=== PATIENT | male | born 1945 | race Caucasian/White ===

== ENCOUNTER 2025-08-05 15:35 | Outpatient (REF) | payer MEDICARE, OTHER, SELFPAY ==
[2025-08-05 18:01] LABS: Folate 6.1 ng/mL (> or = 4.0); Vitamin B12 262 pg/mL (200-900)
== END 2025-08-05 15:36 | disposition home or self-care (01) ==
LOC: HO.LAB 15:35
PROVIDERS: PCP Internal Medicine; Visit Provider Registered Nurse
DX: G31.84 Mild cognitive impairment of uncertain or unknown etiology (principal)
CPT/HCPCS: 36415; 82607; 82746; 84443; 99212

== ENCOUNTER 2025-08-05 15:35 | Outpatient (AMB) | payer MEDICARE, OTHER, SELFPAY ==
--- NOTE | 2025-08-05 15:39 | A.OFFVIS_ITS ---
Intake Visit Reasons: needs cognitive testing Allergies amoxicillin Allergy (Unknown, Verified 08/05/25 15:51) Unknown Medication List - Last Reconciled 08/05/25 by Christine Kaye CNP amlodipine mg PO sertraline 25 mg PO DAILY tamsulosin 0.4 mg PO DAILY valsartan 160 mg PO DAILY HPI Comments Details: 79-year-old man with a history of hypertension who initially presented in summer 2024 with short-term memory concerns. He decided against further work up at that time with CSF dementia panel, and preferred to follow up in 6 months for cognitive testing. He was here today for cognitive testing with MMSE and MoCA. He had 2 master's degrees. 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 He says his memory has never been great and he has always struggled with sequences. He would sometimes lose train of thought. He was going to [place] for few weeks at the end of 08/2025. He first noted some trouble with memory during a trip to [place] in 2022. He has always had problem with names, but recognizes faces. 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 [facility] Medical History (Updated 08/05/25 @ 15:49 by Christine Kaye CNP) Hypertension MCI (mild cognitive impairment) Review of Systems Const Denies chills, Denies daytime sleepiness, Reports difficulty sleeping, Denies fatigue, Denies fever(s), Denies frequent falls, Denies headache(s), Denies increased appetite, Denies poor appetite, Denies snoring, Denies weakness, Denies weight gain and Denies weight loss Eyes Denies loss of vision ENT Denies vertigo, Reports dizziness, Denies headache(s) and Denies neck pain Card Denies chest pain at rest, Denies chest pain with activity, Denies syncope, Denies leg edema, Denies palpitations, Denies dyspnea and Denies dyspnea on exertion Resp Denies cough, Denies dyspnea, Denies dyspnea on exertion and Denies snoring GI Denies abdominal pain, Denies constipation, Denies heartburn, Denies diarrhea and Denies nausea Denies urinary frequency, Denies urinary incontinence and Denies urinary urgency Musc Denies abnormal gait, Denies back pain, Denies myalgias, Denies arthralgias, Denies neck pain, Denies numbness and Denies tingling Neuro Denies abnormal gait, Denies vertigo, Reports dizziness, Denies syncope, Denies frequent falls, Denies headache(s), Denies lack of coordination, Denies loss of vision, Reports memory loss, Denies numbness, Denies Other visual disturbances, Denies restless legs, Denies seizure-like activity, Denies tingling, Denies paresthesias, Denies tremor(s) and Denies weakness Psych Denies anxiety, Denies depression, Denies auditory hallucinations, Reports memory loss and Denies visual hallucinations Endo Denies fatigue and Denies palpitations Physical Exam Neuro Other: Abnormal Neurological Findings:?MMSE 30/30, MoCA 24/30 with MIS 08/02. Mental Status: alert. Cranial Nerves: Pupils are equal, round, and reactive to light. External ocular muscles are intact. Visual jacobson are full, no ptosis. Face is symmetrical, no facial weakness or droop. Facial sensations are normal. Tongue protrudes in midline. Palate elevates symmetrically. Shoulder shrugging is normal. Coordination: No ataxia. No titubation. Mgoluh-ze-rysh, cogq-[id number] test, and rapid alternating movements were normal. Gait Exam: Within normal limits. Extrapyramidal System: Mild hand tremors. No rigidity with normal facial expressions. No bradykinesia. No bradyphrenia. Normal arm swing and posture. No propulsion or retropulsion. Speech: Normal. Assessment & Plan Assessment & Plan (1) MCI (mild cognitive impairment): Code(s): G31.84 - Mild cognitive impairment of uncertain or unknown etiology Category: Medical Plan: He was going to [place] for few weeks next month. Discussed starting medication (such as donepezil), prefers to hold off on starting new medications before leaving. Will discuss newer treatment with anti-amyloid therapy further and additional testing needed if interested at follow up upon return. Labs and EEG ordered. Follow up after testing. Orders: Orders Vitamin B12 and Folate Today G384 - Mild cognitive impairment of uncertain or unknown etiology TSH reflex Free T4 Today G3 - Mild cognitive impairment of uncertain or unknown etiology EEG Routine Today G3 - Mild cognitive impairment of uncertain or unknown etiology Coding Level of Care Code Est Pt Level 4 (84008) Diagnoses MCI (mild cognitive impairment) G3
--- OUTSIDE RECORDS SUMMARY | 2025-08-05 19:26 | XMS_ITS | Clinical Summary ---
Author Organization [facility] [address] [place] [address] [address] [place] [address] Phone Care Team Providers Care Sewer Repairer Name Role Phone Maureen Pelayo MD Primary Care Provider [phone] Allergies Active Allergy Reactions Criticality Noted Date Comments Amoxicillin 01/28/2018 Other Reaction(s): Numbness, tingling or swelling of the lips, tongue or mouth Lisinopril Cough 11/06/2021 Medications fluticasone propionate (FLONASE) 50 mcg/actuation nasal spray Administer 2 sprays into affected nostril(s) 1 (one) time each day. 01/09/20 22 Active tadalafiL (CIALIS) 10 mg tablet TAKE 1 TABLET BY MOUTH EVERY DAY FOR ERECTILE DYSFUNCTION 09/25/19 24 Active azithromycin (ZITHROMAX) 250 mg tablet Take 2 tablets by mouth day 1, then 1 tablet by mouth daily thereafter until completion of prescription. Active doxycycline (ADOXA) 100 mg tablet 03/03/20 24 Active ofloxacin (FLOXIN) 0.3 % otic solution 02/28/20 24 Active predniSONE (DELTASONE) 20 mg tablet 03/30/20 24 Active Shingrix, PF, 50 mcg/0.5 mL suspension for reconstitution 07/31/20 23 Active polyethylene glycol (Golytely) 236-22.74-6.74 -5.86 gram solution Take 4L by mouth once for one dose. May substitue any PEG. Starting at 2PM the day before your procedure drink 1 8oz glasses at your own pace until you complete half of the gallon. Finish 2nd half of the gallon at 8PM. 4000 mL 04/30/20 Active Additional Information Patient not taking.Reported on 07/06/2025 bisacodyL (DULCOLAX) 5 mg EC tablet Take 2 tablets by mouth right before beginning bowel prep. See instructions provided by the office 2 tablet 04/30/20 Active Additional Information Patient not taking.Reported on 07/06/2025 amLODIPine (NORVASC) 5 mg tablet Take 1.5 tablets (7.5 mg total) by mouth 1 (one) time each day. 45 each 5 07/06/20 026 Active sertraline (ZOLOFT) 25 mg tablet Take 1 tablet (25 mg total) by mouth 1 (one) time each day. 30 each 5 07/06/20 026 Active tamsulosin (FLOMAX) 0.4 mg 24 hr capsule Take 1 capsule (0.4 mg total) by mouth 1 (one) time each day. Capsules should be taken 30 minutes following the same meal each day. 90 capsule 1 07/06/20 Active valsartan (DIOVAN) 160 mg tablet Take 1 tablet (160 mg total) by mouth 1 (one) time each day. 90 tablet 1 07/06/20 Active Active Problems Problem Noted Date Diagnosed Date Benign paroxysmal positional vertigo 04/26/2025 Bilateral hearing loss 04/26/2025 Open angle with borderline findings, low risk, b ilateral 04/26/2025 Other disorders of optic ner ve, not elsewhere classified, bilateral 04/26/2025 Other rosacea 04/26/2025 Presence of intraocular lens 04/26/2025 Sensorineural hearing loss, bilateral 04/26/2025 Tear film insufficiency 04/26/2025 Anxiety 08/06/2024 Basal cell carcinoma (BCC) of lower extremity Erythema ab igne 11/19/2023 Neoplastic disease 11/19/2023 Amnesia 10/31/2023 Overview (05/19/2024): Please see note October 31, 2023 Stage 3 chronic kidney disease 07/30/2023 Scar conditions and fibrosis of skin 05/31/2022 Squamous cell carcinoma of skin of trunk 022 Disorder of pigmentation 04/19/2022 Finding of above normal blood pressure 2 Hemangioma of skin and subcutaneous tissue 04/19 Hearing loss 08/25/2021 Cutis rhomboidalis nuchae 08/24/2021 Neoplasm of uncertain behavior of skin 2 Melanocytic nevus of trunk 08/24/2021 Actinic keratosis 08/24/2021 Ventral hernia without obstruction or gangrene 1 Essential hypertension 11/19/2019 Aortic dilatation 06/03/2019 Overview (05/19/2024): Follows with cardiology Kidney stone 02/05/2011 Overview (05/19/2024): S/p lithotripsyX2 follows with urology Hypertrophy of prostate without urinary obstruct ion 03/05/2007 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 Encounters Date Type Department Care Team Description 07/06/2025 9:30 AM EST Office Visit Adult Medicine [address] [address] Maureen Pelayo MD Diarrhea, unspecified type (Primary Dx); Anxiety; Stage 3 chronic kidney disease, unspecified whether stage 3a or 3b CKD (CMS/HCC V24, CMS/HCC V28); Screening for malignant neoplasm of prostate; Benign prostatic hyperplasia with lower urinary tract symptoms, symptom details unspecified 05/06/2025 1:51 PM EDT Anesthesia Event [facility] Endoscopy [address] [place] [id number] Willi Dos Santos MD Sobo, Kathleen, CRNA 05/06/2025 1:31 PM EDT - 05/06/2025 11:59 PM EDT Hospital Encounter [facility] Endoscopy [address] [place] [id number] Marcello Martinez MD Sobo, Kathleen, CRNA Gomes, Sheldon B, MD Diarrhea, unspecified type; Intestinal methanogen overgrowth, unspecified Discharge Disposition: Home or Self Care 05/06/2025 Telephone Gastroenterology - [address] [place] [address] Xochitl Cosme [place] from Last 3 Months Immunizations Immunization Administration Dates Next Due H1N1 Inj Preservative Free 08/23/2009 Influenza Quadravalent, 0.5m l (Fluad) 65yo and older 05/17/2021 Influenza Quadravalent, 0.5m l (Fluzone High-dose) 65yo and older 06/11/2022 Influenza Quadravalent, MDCK , 0.5ml, with preservative (Flucelvax) 6mo and older 06/25/2017 Influenza trivalent, 0.5mL ( Fluzone High-dose) 65yo and older 06/21/2025,06/06/2023,06/21/2020,05/25 Influenza trivalent, with pr eservative (Fluzone; Afluria) 6mo and older 06/20/2018,07/16/2016,05/19/2015,06/09,07/13/2013,07/07/2012,05/23/2011 ,05/24/2010,07/24/2009,06/11/2008,02/2007 Influenza, Unspecified 05/17/2021 Moderna SARS-CoV-2 COVID-19, mRNA, LNP-S, preservative free 06/29/2021,11/03/2020,10/06/2020 Pneumococcal conjugate 13 va lent (Prevnar 13, PCV13) 2mo and older 06/25/2017 Pneumococcal polysaccharide 23 valent (Pneumovax 23) 2yo and older 03/04/2012 Tdap Tetanus diptheria acell ular pertussis (Boostrix; Adacel) 7yo and older 06/03/2019,03/05/2007 Zoster Live 01/06/2013 Zoster recombinant (Shingrix ) 19yo and older 07/31/2023 Surgical History Surgery Date Site/Laterality Comments COLONOSCOPY 03/10/15 PROCEDURE: HISTORICAL COLONOSCOPY; COMMENT: Polyps x 2, otherwise normal Medical History Medical History Date Comments 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 DX:I mpotence of organic origin Hypertrophy of prostate with out urinary obstruction and other lower urinary tract symptoms (LUTS) 03/05/2007 DX:Hypertrophy of prosta te without urinary obstruction and other lower urinary tract symptoms (LUTS) Kidney stone 02/05/2011 DX:Kidney stone Family history of aneurysm 12/02/2018 DX:Zackery boo history of aneurysm Aortic dilatation (CMS/HCC V24) 06/03/2019 DX:Aortic dilatation (HCC); COMMENT: Follows with cardiology Hard to intubate ? Chronic diarrhea Hypertension Family History Medical History Relation Name Comments Colon cancer Aunt at age 56 Other: aortic aneurythm, thorasic Father at age 72 Heart attack Maternal Grandmother Thalia Hollis at a ge 76 Hypertension Mother Meenakshi Relation Name Status Comments Aunt Father Maternal Grandmother Thalia Hollis Mother Meenakshi Social History Tobacco Use Types Packs/Day Years Used Date Smoking Tobacco: Never Smokeless Tobacco: Never Tobacco Cessation:Counseling Given: Not Answered Alcohol Use Standard Drinks/Week Comments Yes 4 (1 standard drink = 0.6 oz pur e alcohol) occasional Housing Instability Answer Date Recorde d Are you worried that in the next 2 months you may not have stable housing? No 11/12/2024 Food Access & Nutrition Answer Date Rec orded Do you have access to a vari ety of food including fruits and vegetables? Yes 11/12/2024 Access to Healthcare Answer Date Record ed Within the last 3 months, ho w many times did you visit the emergency department for your medical care? 2 11/12/2024 Health Literacy Answer Date Recorded How often do you need to hav e someone help you when you read instructions, pamphlets, or other written material from your doctor or pharmacy? Rarely 11/12/2024 Caregiver: How often do you need to have someone help you when you read instructions, pamphlets, or other written material from your doctor or pharmacy? Not on file 11/12/2024 Financial Risk Answer Date Recorded How hard is it for you to pa y for the very basics like food, housing, medical care, and air conditioning / heating? Not very hard 11/12/2024 Transportation Answer Date Recorded Has the lack of transportati on kept you from meetings, work, or from getting things needed for daily living? No Has the lack of transportati on kept you from medical appointments or from getting medications? No 11/12/2024 Social Isolation Answer Date Recorded How often do you feel lonely or isolated from th ose around you? Rarely 11/12/2024 Food Risk Answer Date Recorded Within the past 12 months we worried whether our food would run out before we got money to buy more. Never true 11/12/2024 Within the past 12 months th e food we bought just didn't last and we didn't have money to get more. Never true 11/12/2024 Dependent Care Answer Date Recorded Do you need help finding or paying for care for your loved ones. For example, early childhood specialist or elderly care for an older adult? No 11/12/2024 Education Answer Date Recorded Do you think completing more education or training, like finishing a GED, going to college, or learning a trade, would be helpful for you? No 11/12/2024 Employment and Income Answer Date Recor ded During the last four weeks, have you been actively looking for work? No 11/12/2024 Living Situation Answer Date Recorded What is your living situation? Unrecognized valu e 11/12/2024 Sex and Gender Information Value Date Recorded Sex Assigned at Male 05/06/2025 1:29 PM EDT Legal Sex Male 9:06 PM EST Gender Identity Male 05/06/2025 1:29 PM EDT Sexual Orientation Straight 05/06/2025 1: 29 PM EDT Last Filed Vital Signs Vital Sign Reading Time Taken Comments Blood Pressure 117/56 07/06/2025 9:28 AM EST Pulse 74 07/06/2025 9:28 AM EST Temperature 36.7 C (98.1 F) 07/06/2025 9:28 AM EST Respiratory Rate 16 07/06/2025 9:28 AM EST Oxygen Saturation 98% 05/06/2025 2:26 PM EDT Inhaled Oxygen Concentration - - Weight 92.1 kg (203 lb) 07/06/2025 9:28 AM EST Height 180.3 cm (5' 11 ) 04/29/2025 9:30 AM EDT Body Mass Index 28.31 04/29/2025 9:30 AM EDT Plan of Treatment Upcoming Encounters Date Type Department Care Team (Late st Contact Info) Description 12/06/2025 2:45 PM EDT Office Visit Adult Medicine [address] [phone] Maureen Pelayo MD [address] [place] [address] Health Maintenance Due Date Last Done Comments RSV Immunization Adult Patients (1 - 1-dose 75+ series) 2021 Medicare Annual Wellness Visit 07/21/2022 COVID-19 Vaccine (2024- season) 2025 06/26/2022, 12/06/2021, 06/29/2021, Additional history exists Social Influencers of Health Screening 11/12/2025 11/12/2024 Hypertension/CHF/CAD Annual BMP Blood Test 03/29/2026 03/29/2025, 11/19/2024, 07/28/2024 Falls Risk Assessment 05/06/2026 05/06/2025, 023 Cholesterol Screening (Lipid Panel) 07/17/2028 07/17/2023 DTaP,Tdap,and Td Vaccines (4 - Td or Tdap) 06/03/2029 06/03/2019, 08/19/2012, 03/05/2007 Colorectal Cancer Screening: Colonoscopy 05/06/2035 05/06/2025, 04/25/2020 Hepatitis C Screening Completed 07/13/2013 Pneumococcal Vaccine: 50+ Years Completed 06/25/2017, 03/04/2012 Zoster Vaccines Completed 07/31/2023, 05/21, 08/19/2014, Additional history exists Influenza Vaccine Completed 06/21/2025, , 06/06/2023, Additional history exists Depression Screening Completed 07/06/2025, 01/23/20 24 HIB Vaccines Aged Out No longer eligi ble based on patient's age to complete this topic HPV Vaccines Aged Out No longer eligi ble based on patient's age to complete this topic Hepatitis A Vaccines Aged Out No long er eligible based on patient's age to complete this topic Hepatitis B Vaccines Aged Out No long er eligible based on patient's age to complete this topic IPV Vaccines Aged Out No longer eligi ble based on patient's age to complete this topic MMR Vaccines Aged Out No longer eligi ble based on patient's age to complete this topic Meningococcal ACWY Vaccine Aged Out N o longer eligible based on patient's age to complete this topic Meningococcal B Vaccine Aged Out No l onger eligible based on patient's age to complete this topic RSV Immunization Patients Under 20 months Aged Out No longer eligible based on patient's age to complete this topic Varicella Vaccines Aged Out No longer eligible based on patient's age to complete this topic Procedures Procedure Name Priority Date/Time Associated Diagnosis Comments COLONOSCOPY Routine 05/06/2025 2:05 PM EDT Diarrhea, unspecified type Intestinal methanogen overgrowth, unspecified TISSUE EXAM Routine 05/06/2025 2:00 PM EDT Diarrhea, unspecified type Intestinal methanogen overgrowth, unspecified BASIC METABOLIC PANEL Routine 03/29/2025 2:12 PM EDT Stage 3 chronic kidney disease, unspecified whether stage 3a or 3b CKD (CMS/HCC V24, CMS/[facility] V28) Diarrhea, unspecified type DEPRESSION SCREENING Routine 01/23/2024 LIPID PANEL Routine 07/17/2023 FALLS RISK ASSESSMENT Routine 01/21/2023 HEPATITIS C SCREENING Routine 07/13/2013 from Last 3 Months or Most Recently Relevant to Health Maintenance Results * [place] [facility] [place] [facility] (05/06/2025 2:05 PM EDT) Anatomical Region Laterality Modality Other 05/06/2025 1:41 PM EDT Impressions 05/06/2025 2:06 PM EDT - The examined portion of the ileum was normal. - Normal mucosa in the entire examined colon. Biopsied. - Non-bleeding internal hemorrhoids. - The examination was otherwise normal on direct and retroflexion views. Recommendation: - Discharge patient to home. - Resume previous diet. - Continue present medications. - Await pathology results. - Return to GI clinic as previously scheduled. Narrative 05/06/2025 2:06 PM EDT [facility] GI Patient Name: Harriet Flores Procedure Date: 05/06/2025 1:41 PM Date of : 1945 Age: 79 Room: ROOM 14 Gender: Male Note Status: Finalized Attending MD: Marcello Martinez MD, Procedure Date No Time: 05/06/2025 Procedure: Colonoscopy Indications: Chronic diarrhea Providers: Marcello Martinez MD Referring MD: Marcello Martinez MD Medicines: Monitored Anesthesia Care Complications: No immediate complications. Estimated Blood Loss: Estimated blood loss was minimal. Procedure: After I obtained informed consent, the scope was passed under direct vision. Throughout the procedure, the patient's blood pressure, pulse, and oxygen saturations were monitored continuously.The Olympus Pediatric Colonoscope was introduced through the anus and advanced to the terminal ileum, with identification of the appendiceal orifice and IC valve. The colonoscopy was performed without difficulty. The patient tolerated the procedure well. The quality of the bowel preparation was good. Findings: The terminal ileum appeared normal. Normal mucosa was found in the entire colon. Biopsies were taken with a cold forceps for histology. Estimated blood loss was minimal. Non-bleeding internal hemorrhoids were found during retroflexion. The hemorrhoids were small. The exam was otherwise without abnormality on direct and retroflexion views. Procedure Code(s): --- Professional --- 94734, Colonoscopy, flexible; with biopsy, single or multiple Diagnosis Code(s): --- Professional --- K52.9, Noninfective gastroenteritis and colitis, unspecified CPT copyright 2020 [employer]. All rights reserved. The codes documented in this report are preliminary and upon college teacher review may be revised to meet current compliance requirements. Marcello Martinez MD 05/06/2025 2:06:29 PM This report has been signed electronically.Marcello Martinez MD Number of Addenda: 0 Note Initiated On: 05/06/2025 1:41 PM Scope In: Scope Out: Endoscopy Department at [facility] - [address] [place] [id number] Procedure Note Marcello Martinez MD - 05/06/2025 [facility] GI Patient Name: Harriet Flores Procedure Date: 05/06/2025 1:41 PM Date of : 1945 Age: 79 Room: ROOM 14 Gender: Male Note Status: Finalized Attending MD: Marcello Martinez MD, Procedure Date No Time: 05/06/2025 Procedure: Colonoscopy Indications: Chronic diarrhea Providers: Marcello Martinez MD Referring MD: Marcello Martinez MD Medicines: Monitored Anesthesia Care Complications: No immediate complications. Estimated Blood Loss: Estimated blood loss was minimal. Procedure: After I obtained informed consent, the scope was passed under direct vision. Throughout theprocedure, the patient's blood pressure, pulse, and oxygen saturations were monitored continuously.The Olympus Pediatric Colonoscope was introduced through theanus and advanced to the terminal ileum, with identification of the appendiceal orifice and IC valve. The colonoscopy was performed without difficulty. The patient tolerated the procedurewell. The quality of the bowel preparation was good. Findings: The terminal ileum appeared normal. Normal mucosa was found in the entire colon.Biopsies were taken with a cold forceps for histology. Estimated blood loss was minimal. Non-bleeding internal hemorrhoids were found during retroflexion. The hemorrhoids were small. The exam was otherwise without abnormality ondirect and retroflexion views. Procedure Code(s): --- Professional --- 99052, Colonoscopy, flexible; with biopsy, singleor multiple Diagnosis Code(s): --- Professional --- K52.9, Noninfective gastroenteritis and colitis, unspecified CPT copyright 2020 [employer]. All rights reserved. The codes documented in this report are preliminary and upon college teacher reviewmay be revised to meet current compliance requirements. Marcello Martinez MD 05/06/2025 2:06:29 PM This report has been signed electronically.Marcello Martinez MD Number of Addenda: 0 Note Initiated On: 05/06/2025 1:41 PM Scope In: Scope Out: Endoscopy Department at [facility] - [address] [place] [id number] IMPRESSION: - The examined portion of the ileum was normal. - Normal mucosa in the entire examined colon.Biopsied. - Non-bleeding internal hemorrhoids. - The examination was otherwise normal on directand retroflexion views. Recommendation: - Discharge patient to home. - Resume previous diet. - Continue present medications. - Await pathology results. - Return to GI clinic as previously scheduled. us Marcello Martinez MD GI~PROCEDURE ORDERABLES Final Result * Tissue exam (05/06/2025 2:00 PM EDT) Final Diagnosis Colon, random sites, biopsy: - Colonic mucosa with a rare reactive lymphoid aggregates; otherwise no diagnostic histopathologic change. - No increase in intraepithelial lymphocytes and no thickening of the subepithelial collagen plate identified. 05/07/2025 10:38 AM EDT [facility] at 1038 EDT Gross Description A. Colon, random biopsies: Labeled colon random . Received in formalin are seven irregular adams mucosal tissue fragments, ranging from less than 0.1 cm to 0.2 cm in greatest dimension, which are wrapped in paper and submitted in toto in one cassette, seven pieces, multiple levels on one slide. JITENDRA 05/07/2025 10:38 AM EDT [facility] Disclaimer Unless otherwise specified, all tissue is 10% NB formalin fixed and paraffin embedded. 05/07/2025 10:38 AM EDT [facility] Tissue Colon structure / Unknown 05/06/2025 2:00 PM EDT 05/06/2025 3:11 PM EDT us Marcello Martinez MD LAB PATHOLOGY ORDERABLES Ashley l Result [facility] [address] [place] [address], * (ABNORMAL) Basic metabolic panel (03/29/2025 2:12 PM EDT) Sodium 141 133 - 145 mmol/L LAB CHEMISTRY METHOD 03/29/2025 4:59 PM EDT [facility] Potassium 4.1 3.5 - 5.5 mmol/L LAB CHEMISTRY METHOD 03/29/2025 4:[address] [facility] Chloride 110 96 - 110 mmol/L LAB CHEMISTRY METHOD 03/29/2025 4:[address] [facility] CO2 28 21 - 32 mmol/L LAB CHEMISTRY METHOD 03/29/2025 4:[address] [facility] Anion Gap 3 3 - 11 LAB CHEMISTRY METHOD 03/29/2025 4:59 PM T [facility] Glucose 129(H) 70 - 100 mg/dL LAB CHEMISTRY METHOD 03/29/2025 4:[address] [facility] BUN 25 5 - 25 mg/dL LAB CHEMISTRY METHOD 03/29/2025 4:[address] [facility] Creatinine 1.34(H) 0.70 - 1.30 mg/dL LAB CHEMISTRY METHOD 03/29/2025 4:59 PM T [facility] eGFR 54(L) >=60 mL/min/1. 73m2 LAB CHEMISTRY METHOD 03/29/2025 4:59 PM T [facility] Comment:Calculation based on the Chronic Kidney Disease Epidemiology Collaboration (CKD-EPI) equation refit without adjustment for race. BUN/Creatinine Ratio 18.7 LAB CHEMISTRY METHOD 03/29/2025 4:[address] [facility] Calcium 10.0 8.5 - 10.5 mg/dL LAB CHEMISTRY METHOD 03/29/2025 4:[address] [facility] Blood Venous blood specimen / Unknown Venipuncture / Unknown 03/29/2025 2:12 PM EDT 03/29/2025 2:12 PM EDT us Maureen Pelayo MD LAB BLOOD ORDERABLES Final Resul t [facility] [address], [place] [address] [phone] * Depression Screening (01/23/2024) Pathologist [facility] Depression Screening Abstracted [facility] Provider HEALTH MAINTENANCE Final Result * (ABNORMAL) Lipid panel (07/17/2023) [facility] LDL/HDL Ratio 5(A) 0 - 4 Triglycerides 199(A) 0 - 150 mg/dL Cholesterol 170 0 - 200 mg/dL HDL 37(A) >=40 mg/dL LDL Cholesterol 94 0 - 100 mg/dL Blood Venous blood specimen / Unknown [facility] Provider LAB BLOOD ORDERABLES Ashley l Result * Falls Risk Assessment (01/21/2023) [facility] Falls Risk Assessment Abstracted [facility] Provider HEALTH MAINTENANCE Final Result * Hepatitis C Screening (07/13/2013) [facility] Hepatitis C Screening Abstracted [facility] Provider HEALTH MAINTENANCE Final Result from Last 3 Months or Most Recently Relevant to Health Maintenance Insurance MEDICARE [facility] ANNETTE CHARLES [id number] Care Teams Sewer Repairer Relationship Specialty Start Date End Date Maureen Pelayo MD [address] [place] [address] PCP - General 05/23/00
--- OUTSIDE RECORDS SUMMARY | 2025-08-05 19:26 | XMS_ITS ---
Author Name [facility] Organization Unknown Care Team Organization Name Specialty Phone Email Start Date End Da ke [facility] 04/07/2025 [facility] Pelayo Primary [facility] 06/26/2022 04/06/2024
--- OUTSIDE RECORDS SUMMARY | 2025-08-05 19:26 | XMS_ITS | Clinical Summary ---
Author Organization [facility] Address [address] [place] [id number] Phone Care Team Providers Care Completions Manager Name Role Phone Maureen Pelayo MD Primary Care Provider [phone] Social History Tobacco Use Types Packs/Day Years Used Date Smoking Tobacco: Never Assessed Education Answer Date Recorded Are you interested in more education? Not on emmett e 08/27/2024 Are you concerned about learning? Not on file 08/27/2024 No 08/27/2024 No 08/27/2024 Digital Access Answer Date Recorded No 08/27/2024 No 08/27/2024 Reliable internet access at home? Not on file 08/27/2024 Device with a working camera? Not on file Sex and Gender Information Value Date Recorded Sex Assigned at Male 08/25/2024 1:54 PM EST Legal Sex Male 1:52 PM EST Gender Identity Male 08/25/2024 1:54 PM EST Sexual Orientation Straight 08/25/2024 1: 54 PM EST Plan of Treatment Health Maintenance Due Date Last Done Comments Adult Td,Tdap Booster 1945 DEPRESSION SCREENING 1958 SMOKING Hx and SMOKELESS TOB ACCO SCREENING 1959 HEPATITIS C SCREENING 1964 PNEUMOCOCCAL VACCINES (50+ y ears) (1 of 1 - PCV) 1996 ZOSTER VACCINES (2 of 3) 03/03/2013 01/06/2013 RSV VACCINE (1 - 1-dose 75+ series) 2021 INFLUENZA VACCINE (#1) 2025 COVID-19 VACCINE (1 - 2024-2 6 season) 2025 LIPID PANEL 07/17/2028 07/17/2023 HEPATITIS A VACCINES Aged Out No long er eligible based on patient's age to complete this topic HIB VACCINES Aged Out No longer eligi ble based on patient's age to complete this topic MENINGOCOCCAL VACCINES (ACWY) Aged Out No longer eligible based on patient's age to complete this topic MENINGOCOCCAL VACCINES (B) Aged Out N o longer eligible based on patient's age to complete this topic Medical Devices Not on file Insurance [employer] MEDICARE SUPPLEMENT MEDICARE PART A & B [employer] MEDICARE SUPPLEMENT MEDICARE PART A & B [facility] MEDICARE SUPPLEMENT MEDICARE PART A & B [facility] MEDICARE SUPPLEMENT MEDICARE PART A & B [facility] MEDICARE SUPPLEMENT MEDICARE PART A & B [facility] MEDICARE SUPPLEMENT MEDICARE PART A & B Care Teams Completions Manager Relationship Specialty Start Date End Date Maureen Pelayo MD [address] [place] [address] PCP - General Internal Medicine 08/25/24 Additional Source Comments The information contained in this document represents components of the legal health record. It is not the complete legal health record.[facility]
== END 2025-08-05 16:14 | disposition home or self-care (01) ==
LOC: HO.HSM 15:36
PROVIDERS: PCP Internal Medicine Nephrology; Visit Provider Registered Nurse
DX: G31.84 Mild cognitive impairment of uncertain or unknown etiology (principal)
CPT/HCPCS: 99214